=== PATIENT | female | born 1985 | race Hispanic/Latino ===

== ENCOUNTER 2019-06-11 23:08 | Observation (INO) | payer MEDICAID ==
[~2019-06-11] VITALS: Ht 165.1 cm; Wt 109.3 kg
[2019-06-11 23:52] LABS: APPEARANCE,URINE Clear (CLEAR); BILIRUBIN,URINE Negative (NEGATIVE); COLOR,URINE Yellow (YELLOW); GLUCOSE, URINE (UA) Negative (NEGATIVE); KETONES,URINE Negative (NEGATIVE); LEUKOCYTE ESTERASE ,URINE Moderate (NEGATIVE); NITRATE,URINE Negative (NEGATIVE); OCCULT BLOOD,URINE Negative (NEGATIVE); PROTEIN,URINE Negative (NEGATIVE)
[2019-06-12] LABS: AMPHET/METH SCREEN,URINE NEGATIVE (NEGATIVE); BARBITURATE SCREEN, URINE NEGATIVE (NEGATIVE); BENZODIAZEPINES SCREEN,URINE NEGATIVE (NEGATIVE); CANNABINOID SCREEN,URINE NEGATIVE (NEGATIVE); COCAINE SCREEN,URINE NEGATIVE (NEGATIVE); OPIATE SCREEN,URINE NEGATIVE (NEGATIVE); PHENCYCLIDINE SCREEN,URINE NEGATIVE (NEGATIVE)
[2019-06-12 00:09] LABS: BACTERIA,URINE Few /HPF (None Seen); CALCIUM OXALATE CRYSTALS,UR Moderate /LPF (None Seen); RBC,URINE 0-1 /HPF (0-1)
[2019-06-12] MEDS ORDERED: LACTATED RINGERS 1000ML 1,000 ML IV SCH (00:30)
== END 2019-06-12 01:50 | disposition home or self-care (01) ==
LOC: EDH 23:08 → LDH 23:09
PROVIDERS: ADMIT Obstetrics & Gynecology; ATTEND Obstetrics & Gynecology
DX: O42.913 Preterm premature rupture of membranes, unspecified as to length of time between rupture and onset of labor, third trimester (principal); O26.893 Other specified pregnancy related conditions, third trimester; R10.9 Unspecified abdominal pain; Z90.49 Acquired absence of other specified parts of digestive tract; Z3A.29 29 weeks gestation of pregnancy
CPT/HCPCS: 80305; 81001; 82120; 99284; G0378 ×3; 96360; 96361

== ENCOUNTER 2019-07-26 11:29 | Observation (INO) | payer MEDICAID ==
[~2019-07-26] VITALS: Ht 160 cm; Wt 109.8 kg
[2019-07-26 12:13] LABS: APPEARANCE,URINE Cloudy (CLEAR); BILIRUBIN,URINE Moderate (NEGATIVE); COLOR,URINE Dark Yellow (YELLOW); GLUCOSE, URINE (UA) Negative (NEGATIVE); KETONES,URINE Trace mg/dL (NEGATIVE); LEUKOCYTE ESTERASE ,URINE Moderate (NEGATIVE); NITRATE,URINE Positive (NEGATIVE); OCCULT BLOOD,URINE Negative (NEGATIVE); PROTEIN,URINE POS 1+ mg/dL (NEGATIVE)
[2019-07-26 12:42] LABS: BACTERIA,URINE Few /HPF (None Seen); CALCIUM OXALATE CRYSTALS,UR Moderate /LPF (None Seen); MUCUS,URINE Moderate LPF (None Seen); SQUAMOUS EPITHELIAL CELL,UR Few /HPF (0-2); WBC,URINE 26-50 /HPF (0-1)
[2019-07-26] MEDS ORDERED: CEFTRIAXONE SODIUM 1 GM IVP SCH (14:15)
[2019-08-17] MEDS ORDERED: PREN1TAB80 PO (18:23)
== END 2019-07-26 14:44 | disposition home or self-care (01) ==
LOC: LDH 11:29
PROVIDERS: ADMIT Obstetrics & Gynecology; ATTEND Obstetrics & Gynecology
DX: O36.8130 Decreased fetal movements, third trimester, not applicable or unspecified (principal); Z3A.36 36 weeks gestation of pregnancy
CPT/HCPCS: 76819; 81001; 96374; G0378 ×3; J0696; 96360; 96361

== ENCOUNTER 2019-07-30 16:30 | Observation (INO) | payer MEDICAID ==
[~2019-07-30] VITALS: Ht 162.6 cm; Wt 109.8 kg
[2019-07-30 18:11] VITALS: BP 109/59
== END 2019-07-30 18:00 | disposition home or self-care (01) ==
LOC: LDH 16:30
PROVIDERS: ADMIT Obstetrics & Gynecology; ATTEND Obstetrics & Gynecology
DX: O36.8130 Decreased fetal movements, third trimester, not applicable or unspecified (principal); Z90.49 Acquired absence of other specified parts of digestive tract; Z87.891 Personal history of nicotine dependence; Z3A.36 36 weeks gestation of pregnancy
CPT/HCPCS: G0378

== ENCOUNTER 2019-08-20 15:57 | Emergency (ER) | payer MEDICAID ==
[~2019-08-20 15:57] MED LIST: PREN1TAB80 PO
[2019-08-20] MEDS ORDERED: ONDANSETRON HCL 4 MG/2 ML VIAL ONE (16:34)
[2019-08-20] MEDS ORDERED: MORPHINE SULFATE 4 MG/1ML SYG ONE (16:34)
[2019-08-20] MEDS ORDERED: SODIUM CHLORIDE 0.9% 1000ML 1,000 ML IV ONE (16:35)
[2019-08-20 17:03] LABS: BASOPHILS % (AUTO) 0.1 % (0.0-5.0); EOSINOPHILS % (AUTO) 1.1 % (0.0-8.0); HEMATOCRIT 30.8 % (36-48); LYMPHOCYTES % (AUTO) 7.9 % (21.0-51.0); MEAN CORPUSCULAR HEMOGLOBIN 29.1 pg (27.0-33.0); MEAN CORPUSCULAR HGB CONC 32.8 g/dL (32.0-36.0); MEAN CORPUSCULAR VOLUME 88.8 fL (79-99); MONOCYTES % (AUTO) 2.8 % (3.0-13.0); NEUTROPHILS % (AUTO) 87.6 % (40.0-77.0); PLATELET COUNT (AUTO) 373 K/uL (130-400); RED BLOOD CELL COUNT(AUTO) 3.47 MIL/uL (4.00-5.50); RED CELL DISTRIBUTION WIDTH 14.8 % (11.0-15.5); WHITE BLOOD COUNT (AUTO) 12.3 K/uL (4.8-10.8)
[2019-08-20 17:13] LABS: CREATININE 0.7 mg/dL (0.5-1.5)
[2019-08-20 17:17] LABS: BILIRUBIN,DIRECT 0.1 mg/dL (0.0-0.3); BILIRUBIN,TOTAL 0.4 mg/dL (0.2-1.0); TOTAL PROTEIN, SERUM 6.7 g/dL (6.0-8.3)
[2019-08-20 17:20] LABS: INR 0.9 (0.85-1.15); PROTHROMBIN TIME 9.5 SEC (9.6-11.6)
[2019-08-20] MEDS ORDERED: IOHEXOL 350 MG/ML 100ML INFUS..BTL IV ONE (17:25)
[2019-08-20 17:45] LABS: PARTIAL THROMBOPLASTIN TIME 26.9 SEC (26.3-35.5)
== END 2019-08-20 19:45 | disposition home or self-care (01) ==
LOC: EDH 15:57
DX: G89.18 Other acute postprocedural pain (principal); Z90.49 Acquired absence of other specified parts of digestive tract; Z98.890 Other specified postprocedural states; Z87.891 Personal history of nicotine dependence
CPT/HCPCS: 36415; 74177; 80048; 80076; 82550; 83690; 85025; 85610; 85730; 96374; 96375; 99285; J2270; J2405; J7030; Q9967

== ENCOUNTER 2024-09-13 11:12 | Emergency (ER) | payer BC, MEDICAID ==
[~2024-09-13] VITALS: Ht 165.1 cm; Wt 113.4 kg
[~2024-09-13 11:12] MED LIST changes: +ACET-2079 PO; +DOCU-116 PO; +IBUP-2077 PO
[2024-09-13] MEDS ORDERED: ondanSETRON ODT 4MG TAB SL ONE (11:30)
[2024-09-13 11:54] LABS: APPEARANCE,URINE CLEAR (CLEAR); BILIRUBIN,URINE NEGATIVE (NEGATIVE); COLOR,URINE LIGHT-YELLOW (YELLOW); GLUCOSE, URINE (UA) NEGATIVE (NEGATIVE); KETONES,URINE NEGATIVE (NEGATIVE); LEUKOCYTE ESTERASE ,URINE 25 Leu/uL (NEGATIVE); NITRATE,URINE NEGATIVE (NEGATIVE); OCCULT BLOOD,URINE NEGATIVE (NEGATIVE); PH,URINE 7.5 (5.0-8.0); PROTEIN,URINE 10 mg/dL (NEGATIVE); UROBILINOGEN,URINE 0.2 mg/dL (0.2-1.0)
[2024-09-13 12:01] LABS: HCG,QUALITATIVE URINE NEGATIVE (NEGATIVE)
[2024-09-13] MEDS: metoCLOPRAmide 10 MG/2 ML VIAL IVP ONE (12:02)
[2024-09-13] MEDS: 0.9%NACL 1000ML 1,000 ML IV ONE (12:02)
[2024-09-13] MEDS: DiphenhydrAMINE HCL 50 MG/ML VIAL IV ONE (12:02)
[2024-09-13 12:16] LABS: COVID19 (SARS ANTIGEN RAPID) PRESUMPTIVE NEGATIVE (NEGATIVE); INFLUENZA TYPE A Negative For Type A (NEGATIVE); INFLUENZA TYPE B Negative For Type B (NEGATIVE)
[2024-09-13 12:17] LABS: BASOPHILS # (AUTO) 0.04 K/uL (0.00-0.20); BASOPHILS % (AUTO) 0.5 % (0.0-5.0); EOSINOPHILS # (AUTO) 0.05 K/uL (0.00-0.70); EOSINOPHILS % (AUTO) 0.6 % (0.0-8.0); HEMATOCRIT 40.3 % (36-48); IMMATURE GRANULOCYTE ABSOLUTE 0.03 K/uL (0-1); LYMPHOCYTES # (AUTO) 1.1 K/uL (1.0-4.8); LYMPHOCYTES % (AUTO) 12.7 % (21.0-51.0); MEAN CORPUSCULAR HEMOGLOBIN 27.9 pg (27.0-33.0); MEAN CORPUSCULAR HGB CONC 32.3 g/dL (32.0-36.0); MEAN CORPUSCULAR VOLUME 86.5 fL (79-99); MONOCYTES # (AUTO) 0.3 K/uL (0.1-1.0); MONOCYTES % (AUTO) 3.5 % (3.0-13.0); NEUTROPHILS # (AUTO) 7.3 K/uL (1.8-7.7); NEUTROPHILS % (AUTO) 82.4 % (40.0-77.0); PLATELET COUNT (AUTO) 346 K/uL (130-400); RED BLOOD CELL COUNT(AUTO) 4.66 MIL/uL (4.00-5.50); RED CELL DISTRIBUTION WIDTH 13.9 % (11.0-15.5); WHITE BLOOD COUNT (AUTO) 8.9 K/uL (4.8-10.8)
[2024-09-13 12:23] LABS: BACTERIA,URINE RARE /HPF (None Seen); MUCUS,URINE RARE LPF (None Seen); SQUAMOUS EPITHELIAL CELL,UR MOD /HPF (0-2)
[2024-09-13 12:48] LABS: CREATININE 0.7 mg/dL (0.5-1.0); POTASSIUM 4.6 mmol/L (3.5-5.1)
--- NOTE | 2024-09-13 13:21 | HMCIMG ---
Exam Type: CT HEAD/BRAIN W/O CONTRAST Clinical Information: headache Comparison: None CT Dose Index (CTDI): 57.33 mGy Dose Length Product (DLP): 956.79 total mGy-cm Findings: The examination is unremarkable. Carlson-white matter junction is preserved. No intra or extra axial lesions or fluid collections are seen. Specifically, carlson and white matter are normal in signal characteristics with normal caliber of ventricles and periventricular cisterns with no evidence of intra or or extra-axial hemorrhage, lacunar infarct, or major territorial infarct, mass, or other abnormality. There are no infarcts. There are no hemorrhages. Periventricular white matter locations are preserved. The orbital contents and structures of the posterior fossa are intact. Impression: Normal CT of the head. This study was performed using dose reduction techniques to include automated exposure control and/or adjustment of the mA and/or kV according to patient size.
[2024-09-13] MEDS ORDERED: ASPI1TAB7 PO (13:47)
--- NOTE | 2024-09-13 13:47 | ERN ---
General Chief Complaint: Headache Stated Complaint: HEADACHE AND VOMITING Time Seen by MD: 11:17 Time Seen by Midlevel: 11:17 Source: patient History of Present Illness Initial Comments 38-year-old female who presents to the emergency department due to headache and vomiting onset this morning. Patient reports she has a history of migraines and usually initiated with vomiting. Denies any current vision change, and light sensitivity, noise sensitivity, head injuries, LOC or further associated symptoms. Patient states that this headache feels different unlike her usual migraines. Allergies: Coded Allergies: No Known Drug Allergies (Unverified Allergy, Unknown, 06/11/19) Home Meds Active Scripts Aspirin/Acetaminophen/Caffeine (Excedrin Migraine Caplet) 250 Mg-250 Mg-65 Mg Tablet, 2 EACH PO TID, #42 TAB Prov:SARAH BETH GAINES 09/13/24 Reported Medications Acetaminophen with Codeine (Acetaminophen-Cod #3 Tablet) 1 Each Tablet, 1 EACH PO Q4H, #30 TAB 06/20/22 Ibuprofen (Ibuprofen 800 mg Tab) 800 Mg Tab, 800 MG PO Q8H PRN for PAIN, #60 TAB 06/20/22 Docusate Sodium (Colace) 100 Mg Capsule, 100 MG PO BID, #60 CAP 06/20/22 Vits W-Ca,Fe,FA(<1Mg) ( Vitamins) 1 Each Tablet, 1 EACH PO DAILY, TAB 08/17/19 Past Medical History Past Medical History: No Pertinent History Past Surgical History: Cholecystectomy, Female( History) : 4 Para: 2 Aborts: 2 ROS Dictation Constitutional: Negative for fever,chills, and weight loss Eyes: Negative for injury, pain,redness, and discharge ENT: Negative for injury,pain or swelling Cardiovascular: Negative for chest pain, palpitations, and edema Respiratory: Negative for shortness of breath, cough, and wheezing, Abdomen/GI: Positive for vomiting Negative for abdominal pain, nausea, diarrhea, and constipation Back: Negative for injury and pain : Negative for painful urination, bleeding or discharge MS/Extremity: Negative for injury and deformity Skin: Negative for rash, and discoloration Neuro: Positive for headache Negative for weakness, numbness, tingling, and seizure Psych: Negative for suicide ideation, homicidal ideation, and hallucinations Physical Exam Physical Exam Dictation General: awake, alert, no acute distress Head/Face: Normocephalic, atraumatic Eyes: PERRL, EOMI, normal conjunctiva ENT: oral cavity clear, oral mucosa moist Neck: Supple, normal range of motion Cardiovascular: RRR, normal S1/S2 Respiratory: CTAB, no respiratory distress, no rales or wheezes Abdomen: Soft, non-tender, non-distended, normal bowel sounds, no guarding or rebound. Skin: Warm, dry, normal turgor, no rash MS/Extremity: Pulses equal, no cyanosis, neurovascular intact, FROM Neuro: COAx4, GCS 15, strength 5/5, CN 2-12 intact, normal cerebellar exam, normal gait, Psych: Normal behavior, mood, and affect normal Results Laboratory and Microbiology Lab and Micro Result Laboratory Tests Test 09/13/24 11:33 09/13/24 11:41 09/13/24 11:59 Urine Color LIGHT-YELLOW (YELLOW) Urine Appearance CLEAR (CLEAR) Urine pH 7.5 (5.0-8.0) Urine Specific [place] 1.024 (1.001-1.031) Urine Protein 10 mg/dL (NEGATIVE) H Urine Glucose (UA) NEGATIVE mg/dL (NEGATIVE) Urine Ketones NEGATIVE mg/dL (NEGATIVE) Urine Occult Blood NEGATIVE (NEGATIVE) Urine Nitrate NEGATIVE (NEGATIVE) Urine Bilirubin NEGATIVE mg/dL (NEGATIVE) Urine Urobilinogen 0.2 mg/dL (0.2-1.0) Urine Leukocyte Esterase 25 Jesse/uL (NEGATIVE) H Urine RBC 6-10 /HPF (0-1) H Urine WBC 2-5 /HPF (0-1) H Urine Squamous Epithelial Cells MOD /HPF (0-2) Urine Bacteria RARE /HPF (None Seen) Urine Hyaline Casts 2-5 /LPF (0-1 /LPF) H Urine HCG, Qualitative NEGATIVE (NEGATIVE) Influenza Type A Antigen Negative For Type A Influenza Type B Antigen Negative For Type B SARS-CoV-2 Antigen (Rapid) PRESUMPTIVE NEGATIVE White Blood Count 8.9 K/uL (4.8-10.8) Red Blood Count 4.66 MIL/uL (4.00-5.50) Hemoglobin 13.0 g/dL (12.0-16.0) Hematocrit 40.3 % (36-48) Mean Corpuscular Volume 86.5 fL (79-99) Mean Corpuscular Hemoglobin 27.9 pg (27.0-33.0) Mean Corpuscular Hemoglobin Concent 32.3 g/dL (32.0-36.0) Red Cell Distribution Width 13.9 % (11.0-15.5) Platelet Count 346 K/uL (130-400) Mean Platelet Volume 9.0 fL (7.5-10.5) Immature Granulocyte % (Auto) 0.3 % (0-1) Neutrophils (%) (Auto) 82.4 % (40.0-77.0) H Lymphocytes (%) (Auto) 12.7 % (21.0-51.0) L Monocytes (%) (Auto) 3.5 % (3.0-13.0) Eosinophils (%) (Auto) 0.6 % (0.0-8.0) Basophils (%) (Auto) 0.5 % (0.0-5.0) Neutrophils # (Auto) 7.3 K/uL (1.8-7.7) Lymphocytes # (Auto) 1.1 K/uL (1.0-4.8) Monocytes # (Auto) 0.3 K/uL (0.1-1.0) Eosinophils # (Auto) 0.05 K/uL (0.00-0.70) Basophils # (Auto) 0.04 K/uL (0.00-0.20) Absolute Immature Granulocyte (auto 0.03 K/uL (0-1) Nucleated Red Blood Cells 0.0 % (0.0-0.19) Sodium Level 136 mmol/L (136-145) Potassium Level 4.6 mmol/L (3.5-5.1) Chloride Level 102 mmol/L (101-111) Carbon Dioxide Level 29 mmol/L (21-32) Blood Urea Nitrogen 12 mg/dL (7-18) Creatinine 0.7 mg/dL (0.5-1.0) Glomerular Filtration Rate Calc 113 mL/min (>90) Random Glucose 110 mg/dL (70-105) H Total Calcium 8.8 mg/dL (8.5-10.1) Labs Reviewed?: Yes EKG/XRAY/US/CT/MRI CT Scan Comment REASON: headache ORDERING PHYSICIAN: SARAH BETH GAINES PROCEDURE: HEAD WO - CT HEAD/BRAIN W/O CONTRAST Exam Type: CT HEAD/BRAIN W/O CONTRAST Clinical Information: headache Comparison: None CT Dose Index (CTDI): 57.33 mGy Dose Length Product (DLP): 956.79 total mGy-cm Findings: The examination is unremarkable. Carlson-white matter junction is preserved. No intra or extra axial lesions or fluid collections are seen. Specifically, carlson and white matter are normal in signal characteristics with normal caliber of ventricles and periventricular cisterns with no evidence of intra or or extra-axial hemorrhage, lacunar infarct, or major territorial infarct, mass, or other abnormality. There are no infarcts. There are no hemorrhages. Periventricular white matter locations are preserved. The orbital contents and structures of the posterior fossa are intact. Impression: Normal CT of the head. This study was performed using dose reduction techniques to include automated exposure control and/or adjustment of the mA and/or kV according to patient size. DICTATED BY: FRAN HANKINS MD DATE: 09/13/24 1318 MDM MDM: Differential diagnosis: Rationale: 38-year-old female who presents to the emergency department due to headache and vomiting onset this morning. Patient reports she has a history of migraines and usually initiated with vomiting. Denies any current vision c hange, and light sensitivity, noise sensitivity, head injuries, LOC or further associated symptoms. Patient states that this headache feels different unlike her usual migraines. Per physical examination patient is in no acute distress, neurologically intact. Labs obtained are nonspecific, UA contaminated. CT head indicates unremarkable with no acute abnormalities. Patient was administered IV fluids, Reglan and Benadryl in the ED. On re-examination patient verbalized headache had improved and vomiting had stopped. Advised to follow up with PCP. Return to the emergency department if any worsening symptoms. Patient verbalized u nderstanding. Patient stable for discharge. There are no social concerns with this patient. I independently interpreted the test that were performed, results were reviewed by me and considered findings on radiology if ordered. Medical management and examination interpretation discussions were had by me with other qualified healthcare professionals as indicated for the patient's care. ED Course Orders Procedure Category Date Status Time Cbc With Differential LAB 09/13/24 Complete 11:18 Basic Metabolic Panel LAB 09/13/24 Complete 11:18 Urinalysis LAB 09/13/24 Complete W/Microscopic 11:18 ,Urine Test LAB 09/13/24 Complete 11:18 Influenza Type A & B, LAB 09/13/24 Complete Rapid 11:18 Covid19 (Sars Antigen LAB 09/13/24 Complete Rapid) 11:18 Ondansetron Odt 4mg PHA 09/13/24 Complete Tab (Zofran 4mg Odt) 11:30 Ct Head/Brain W/O CT 09/13/24 Resulted Contrast 11:18 0.9%Nacl 1000ml (Ns PHA 09/13/24 Complete 1000ml) 12:00 Diphenhydramine Hcl PHA 09/13/24 Complete (Benadryl Inj) 12:00 Metoclopramide 10 PHA 09/13/24 Complete Mg/2 Ml Vial (Reglan 1 12:00 Current Medications Medications (Trade) Dose Ordered Sig/Angelica Route PRN Reason Start Time Stop Time Status Last Admin Dose Admin Diphenhydramine HCl (BENAdryl INJ) 25 mg ONCE ONCE IV 09/13/24 12:00 09/13/24 12:01 DC 09/13/24 12:02 Metoclopramide HCl (regLAN 10MG IV) 10 mg ONCE ONCE IVP 09/13/24 12:00 09/13/24 12:01 DC 09/13/24 12:02 Ondansetron HCl (zoFRAN 4MG ODT) 4 mg ONCE ONCE SL 09/13/24 11:30 09/13/24 11:49 DC Sodium Chloride 1,000 ml @ 0 mls/hr ONCE ONCE IV 09/13/24 12:00 09/13/24 12:01 DC 09/13/24 12:02 Vital Signs Date Time Temp Pulse Resp B/P (MAP) Pulse Ox O2 Delivery O2 Flow Rate FiO2 09/13/24 13:58 98.2 65 16 130/70 98 Room Air* 0 21 09/13/24 11:35 98.1 68 16 132/74 98 Room Air* 0 21 09/13/24 11:12 97.3 69 20 134/76 99 Room Air 0 DX & DISP Disposition: Discharge Departure Impression: Primary Impression: Migraine Condition: Stable Scripts Aspirin/Acetaminophen/Caffeine (Excedrin Migraine Caplet) 250 Mg-250 Mg-65 Mg Tablet 2 EACH PO TID, #42 TAB Prov: SARAH BETH GAINES 09/13/24 Additional Instructions: Discharge home. Rest. Follow up with primary care [facility] in 24 hours. Return to the ER for any acute changes or worsening symptoms. If any medications were prescribed take as directed. Okay to continue home medications unless otherwise discussed during your visit in the emergency room today. Patient was also advised to follow-up with primary care physician in 1 to 2 days for continued monitoring. Referrals: ANGELLA PARIKH MD (PCP) I performed the substantive portion of the visit. I have reviewed and perso bessy made and approve the management plan that is documented in the notes by myself or the REFUGIO. I acknowledge full responsibility for the patient's management plan. SARAH BETH GAINES Sep 13, 2024 13:47
[2024-09-13 13:58] VITALS: BP 130/70; PULSE 65; RESP 16; TEMP 98.3; O2SAT 98
== END 2024-09-13 14:04 | disposition home or self-care (01) ==
LOC: EDH 11:12
DX: G43.909 Migraine, unspecified, not intractable, without status migrainosus (principal); Z20.822 Contact with and (suspected) exposure to COVID-19; Z79.82 Long term (current) use of aspirin; Z90.49 Acquired absence of other specified parts of digestive tract; Z98.890 Other specified postprocedural states
CPT/HCPCS: 99284; 96374; 70450; 96361; 96375; 87426; 80048; 85025; 87804 ×2; 81001; 81025; 36415; J1200; J7030; J2765